=== PATIENT | female | born 1985 | race Caucasian/White ===

== ENCOUNTER 2021-11-21 09:30 | Outpatient (CLI) | payer OTHER, SELFPAY ==
--- NOTE | ~2021-11-21 | US_ITS ---
EXAMINATION: US transvaginal DATE: 11/21/2021 09:54 INDICATION: Excessive and frequent menstruation TECHNIQUE: Multiple endovaginal sonographic images of the pelvis were obtained. COMPARISON: None. FINDINGS: The uterus measures 10.3 x 5.2 x 4.6 cm. The endometrial complex measures 8 mm. The right o vary measures 2.5 x 1.1 x 2.6 cm. The left ovary measures 3 x 2.6 x 3.6 cm. There is normal vascular flow in the ovaries. There is no free fluid in the pelvis. IMPRESSION: 1. No sonographic correlate for the patient's symptoms. Reviewed, dictated and finalized at location A.
== END 2021-11-21 09:31 ==
PROVIDERS: PCP Internal Medicine; Visit Provider Internal Medicine
DX: N92.1 Excessive and frequent menstruation with irregular cycle (principal); N93.9 Abnormal uterine and vaginal bleeding, unspecified
CPT/HCPCS: 76830

== ENCOUNTER 2023-02-10 11:00 | Outpatient (CLI) | payer OTHER, SELFPAY ==
--- NOTE | ~2023-02-10 | US_ITS ---
Pelvic ultrasound. Clinical History: Uterine bleeding Technique: Realtime transabdominal and transvaginal scanning of the pelvis was performed. Color flow Doppler and Doppler spectral analysis were performed. Findings: The uterus is anteverted. The endometrial stripe has a thickness of 10 mm. No focal mass i s identified. The right ovary measures 3.7 x 1.8 x 1.7 cm. No significant right ovarian or adnexal mass is seen. The left ovary is not visualized. No significant left ovarian or adnexal mass is seen. There is no evidence of free fluid in the cul de sac. Impression: No significant abnormality seen. Left ovary not seen. Reviewed, dictated and finalized at location . Impression: No significant abnormality seen. Left ovary not seen.
== END 2023-02-10 11:01 ==
PROVIDERS: PCP Advanced Practice Midwife; Visit Provider Advanced Practice Midwife
DX: N93.8 Other specified abnormal uterine and vaginal bleeding (principal)
CPT/HCPCS: 76830

== ENCOUNTER 2023-10-31 05:28 | Day surgery (SDC) | payer OTHER, SELFPAY ==
--- NOTE | 2023-10-19 18:01 | PC.NURSE ---
Report to the Outpatient Waiting Room, entrance under the green pavilion located off [facility], at time 0815 on date 10/31/23. Planned Procedure Time: 1015. Time changes happen often and if your time is changed the preop area will call you the afternoon before. - You and your visitor will be asked to self-screen and do not enter if you have any COVID symptoms. - A mask is optional within the hospital at this time. Patients may have clear liquids (water, carbonated beverages, clear teas, apple juice) until 3 hours prior to surgery with a maximum of 20 ounces. 0715 - No food from midnight until time of surgery - Infants may have breast milk until 4 hours before surgery, formula 6 hours prior to surgery. - Children will be allowed to drink immediately following surgery. If applicable, please bring a bottle or sippy cup to assist with drinking. Juice, water, soda, and popsicles are readily available. For infants on formula, please bring formula the day of surgery. Pacifiers are allowed. Take the following medications with a SIP of water the morning of surgery: NONE DO NOT STOP ANY OF YOUR OTHER PRESCRIPTION MEDICATIONS PRIOR TO SURGERY ?EXCEPT THE FOLLOWING Medications to discontinue per physician MULTIVITAMIN- STOP 3 DAYS PRIOR TO PROCEDURE Date to take last dose Please no make-up, nail nigerian, hairspray, perfume, deodorant, or body powder the day of surgery. No jewelry (including any body piercings) or valuables the day of surgery, leave them at home. Please take a shower or bath the night before, or the morning of, surgery with an antibacterial soap. Wear comfortable, loose fitting clothing. Children are encouraged to wear pajamas. - Jewelry must be removed prior to entering the operating room. Rings and piercings that are not removed may be cut off. - The hospital will not accept responsibility for valuables. - Please leave all valuables, including medications, at home the day of surgery. If you are going home after surgery, a licensed coach driver must drive you home. - NO public transportation without another adult if you receive anesthesia. - We recommend that an adult stay with you for 24 hours following discharge. - We also recommend that you do not drive, make important decision, drink alcoholic beverages, or take any drugs that were not prescribed by your health care provider for at least 24 hours after your discharge time. For Pediatric surgeries, we recommend two adults accompany the child home. Follow any additional instructions given to you from your surgeon. If you or anyone in your household have experienced Covid symptoms in the past week, please notify your surgeon or the nurse liaison at the phone number below for possible testing. Telephone instructions given to PATIENT- WOOD KIM and asked if any additional questions and then verbalized understanding. Patient advised to call surgeon office or pre surgery nurse liaison [phone] if any additional questions.
[2023-10-19 18:06] VITALS: BMI 44.2
[2023-10-31] VITALS (10 sets, daily range): BP systolic 124–167; BP diastolic 56–98; PULSE 88–98; RESP 10–20; TEMP 36.1–36.7; O2SAT 97–100
--- NOTE | 2023-10-31 07:07 | WPDHPUPDATE1 ---
History and Physical Update Update Date/Time: 10/31/23 07:07 History and Physical has been reviewed, including an updated exam of the patient. There are NO changes in the patient's condition. Risks, benefits, and alternatives have been discussed and questions answered. Patient agrees to proceed with procedure.
--- NOTE | 2023-10-31 07:07 | PM.HPGS ---
History of Present Illness History of Present Illness Consent: Risks, benefits, and alternatives have been discussed and questions answered. Patient agrees to proceed with procedure. Chief complaint: Menorrhagia, Desire Sterilization Narrative: Columba Ortega is a 38 year old female with menorrhagia. Patient underwent hysteroscopy in February of 2023 which revealed benign findings. She subsequently had an IUD placed but continues to have heavy prolonged bleeds. Options were reviewed and she elected to proceed with endometrial ablation and as she has completed her childbearing bilateral salpingectomy. The IUD will be removed at the time of surgery. Risks of infection, bleeding, perforation, tubal failure ( with increased risk of ectopic ), injury to internal organs, and anesthesia are reviewed. Patient voices understanding and agrees to proceed. Review of Systems Review of Systems: not repeated day of surgery; patient states no changes in status PMFSH Past Medical History Medical History (Updated 10/31/23 @ 07:11 by Theresa Laughlin MD) Anxiety (normal spontaneous vaginal delivery) x4 Status post hysteroscopy Surgical History Surgical History (Updated 10/31/23 @ 07:10 by Theresa Laughlin MD) Status post tonsillectomy Social History Social History (System 10/07/23 @ 07:16 by Kristen Gomez) Smoking status: Never smoker Spiritual care concerns: No Meds Home Medications and Allergies Home Medications Medication Instructions Recorded Confirmed Type Adults Multivitamin 1 tab-cap PO DAILY 10/19/23 10/19/23 History bupropion HCl 150 mg 24 hr tablet, 150 mg PO HS 10/19/23 10/19/23 History extended release fluoxetine 40 mg capsule 80 mg PO HS 10/19/23 10/19/23 History Allergies Allergy/AdvReac Type Severity Reaction Status Date / Time No Known Allergies Allergy Verified 10/19/23 17:52 Exam Const: General: healthy appearing and alert Orientation/consciousness: patient oriented x3 Resp: Effort & Inspection: normal respiratory effort GI: GI Palp: Yes Soft to palpation, No Tenderness to palpation present (GI) and No Palpable mass present : External Female Exam: normal external appearance Speculum Exam - Vagina: normal appearance of the vagina and normal vaginal discharge Speculum Exam - Cervix: normal appearance of the cervix Bimanual exam- vagina & uterus: uterine size normal and consistency normal Bimanual Exam- Adnexa, other: normal adnexae and No adnexal tenderness Neuro: General: patient oriented x3 Assessment and Plan Assessment and plan (1) Menorrhagia: Code(s): N92.0 - Excessive and frequent menstruation with regular cycle Status: Acute Assessment and Plan: to proceed with Jannet endometrial ablation (2) Encounter for sterilization: Code(s): Z30.2 - Encounter for sterilization Status: Acute Assessment and Plan: plan to proceed with laparoscopic bilateral salpingectomy
[2023-10-31] MEDS: KETOROLAC 15 MG/ML VIAL (*BKC) IV PUSH (09:26)
[2023-10-31] MEDS: ACETAMINOPHEN 500 MG TABLET 1000 MG PO (09:26)
[2023-10-31] MEDS: LACTATED RINGERS 1,000 ML 30 ML IV CONT ×2 (09:26→11:31)
--- NOTE | 2023-10-31 10:03 | P.PNAN_ITS ---
Anes - Initial Pre Proc Eval Procedure: Operation Date: 10/31/23 10:15 Proposed Procedures p Laparoscopic Bilateral Salpingectomy with Hysteroscopy with Jannet Endometrial Ablation, Intrauterine Device Removal - Theresa Laughlin MD Date/Time: 10/31/23 10:03 Surgeon: Theresa Laughlin MD Pre Op Diagnosis: Menorrhagia, Desire Sterilization Patient Data Age: 38 Gender: F Height: 1.75 m Weight: 131.7 kg Last Vital Signs Temp 97.0 F L 10/31/23 08:12 Pulse 89 10/31/23 08:12 Resp 18 10/31/23 08:12 BP 167/98 H 10/31/23 08:12 Pulse Ox 97 10/31/23 08:12 O2 Del Method Room Air 10/31/23 08:12 Allergies Allergy/AdvReac Type Severity Reaction Status Date / Time No Known Allergies Allergy Verified 10/31/23 09:11 Home Medications Medication Instructions Recorded Confirmed Type Adults Multivitamin 1 tab-cap PO DAILY 10/19/23 10/31/23 History bupropion HCl 150 mg 24 hr tablet, 150 mg PO HS 10/19/23 10/31/23 History extended release fluoxetine 40 mg capsule 80 mg PO HS 10/19/23 10/31/23 History Patient hx anesthesia problems: post op nausea/vomiting Family hx anesthesia problems: none Results Review: All pre-operative results and documents have been reviewed as part of the pre- operative evaluation. [facility], [facility] Past Medical History Medical History Anxiety (normal spontaneous vaginal delivery) x4 Status post hysteroscopy Surgical History Surgical History Status post tonsillectomy Social History Social History Smoking status: Never smoker Spiritual care concerns: No Anes - Eval Final PreProcedure Day of Procedure 10/31/23 10:03 Patient weight: obese Heart: regular rate and rhythm Lungs: clear to auscultation Airway: Mallampati scale (Missing lower L and upper R teeth. ) Neurological: alert and oriented Last oral intake: >/= 8 hours ASA classification: II Emergent: no Anesthetic plan: proceed Anesthesia type and monitoring: general and standard monitoring Results Review: All pre-operative results and documents have been reviewed as part of the pre- operative evaluation. Informed Consent: The patient's anesthetic plan and its attendant risks and benefits were discussed with the patient/family/POA. Questions were solicited and answers provided to the satisfaction of the patient/family/POA.
--- NOTE | 2023-10-31 11:27 | W.PM.PROC2 ---
Procedure Note - Detailed Date of Procedure 10/31/23 Pre-op Diagnosis Menorrhagia, Desire Sterilization Post-op Diagnosis Same Procedure Performed IUD removal laparoscopic bilateral salpingectomy Jannet endometrial ablation Surgeon Theresa Laughlin MD Anesthesia General Findings normal-appearing tubes, ovaries, uterus Description of Procedure The patient is taken to the operating room and placed under anesthesia in the dorsal lithotomy position. She was prepped and draped in the usual sterile fashion. Bladder was drained with a red rubber catheter. [place] speculum was placed in the vagina and the cervix grasped on the anterior lip with a tenaculum. The IUD strings are grasped and IUD removed using a ring forceps. The IUD was intact and discarded. The acorn manipulator was placed and the speculum removed. Attention was turned to the abdomen where a vertical skin incision was made at the base of the umbilicus. The abdomen was tented and a Veress needle placed. It was noted to be too short. The long Veress needle was opened and placed. Opening patient pressure was 6mmHg. Water drop test was normal. The pneumoperitoneum was obtained to a patient pressure of 15. The Veress needle was then removed and the 5mm trocar placed while tenting the abdomen with towel clamps. The intra-abdominal placement was confirmed with the laparoscope. The patient was placed in Trendelenburg and the right tube grasped with an atraumatic grasper. The LigaSure was used to cauterize the mesosalpinx until the cornu was reached. Leaving approximately 1cm of tube the tube was crossclamped cauterized and cut. The tube was removed. The identical procedure was performed on the left side. Good hemostasis is noted at all pedicles. Pneumoperitoneum was reduced and instruments are removed. Skin is closed with 4-0 nylon in her interrupted fashion. Coverlets are placed over the incisions. Attention was returned to the vagina where the speculum is replaced. The uterus is sounded to 9.5cm. The cervix is serially dilated with Hegar to an 8. Hysteroscope was placed and with no abnormalities noted it is removed. The Jannet device was opened and placed set at 5.5cm. The cavity assessment passed on the 1st attempt. Treatment cycle lasted the full 2minutes. The Jannet device is removed and the hysteroscope was replaced. A good ablation effect noted. All instruments were then removed. Sponge, needle, and instrument counts are correct per the OR staff. Patient was awakened from anesthesia and taken to recovery in stable condition. Estimated Blood Loss 5 Drains No Packing No Pathology Yes ( Bilateral tubes) Complications No immediate complications Condition Stable Disposition PACU
[2023-10-31] MEDS: fentaNYL CITRATE INJ (*CRX) 100 MCG/2 ML VIAL 25 MCG IV PUSH ×4 (11:42→12:09)
[2023-10-31] MEDS: oxyCODONE HCL (*CRX) 5 MG TAB IR PO (12:35)
== END 2023-10-31 13:25 | disposition home or self-care (01) ==
PROVIDERS: Visit Provider Obstetrics & Gynecology Gynecology
PROC: 0UDB8ZZ Extraction of Endometrium, Via Natural or Artificial Opening Endoscopic (ICD-10-PCS; CPT 58558; principal; 2023-10-31 10:15)
DX: N92.0 Excessive and frequent menstruation with regular cycle (principal); Z30.2 Encounter for sterilization; F41.9 Anxiety disorder, unspecified; E66.9 Obesity, unspecified; Z68.41 Body mass index [BMI] 40.0-44.9, adult; Z98.890 Other specified postprocedural states
CPT/HCPCS: 58661; 58563; 88302; A9270; J1100; J1596; J1885; J2250; J2371; J2405; J2704; J3010; J7120